=== PATIENT | female | born 1965 | race African-American/Black ===

== ENCOUNTER 2017-03-07 10:02 | Inpatient (IN) | payer OTHER ==
[2017-03-07 12:17] VITALS: BMI 36.7
--- NOTE | 2017-03-07 15:49 | HP ---
Admission [facility] Chief Complaint: REHAB TX FOR COCAINE AND ALCOHOL DEPENDENCE Allergies/Adverse Reactions: Allergies Allergy/AdvReac Type Severity Reaction Status Date / Time haloperidol [From Haldol] Allergy Severe Verified 03/07/17 14:39 haloperidol lactate Allergy Severe Verified 03/07/17 14:37 [From Haldol] Penicillins Allergy Intermediate Rash Verified 03/07/17 14:37 History of Present Illness: 51 Y/O AA/FEMALE WITH A HX OF COCAINE AND ALCOHOL DEPENDENCE SEEKING REHAB TX Exam Limitations: No Limitations - Ebola screening Have you traveled outside of the country in the last 21 days: No Have you had contact with anyone from an Ebola affected area: No Have you been sick,other than usual withdrawal symptoms: No Do you have a fever: No - Review of Systems Constitutional: No Symptoms Reported EENT: reports: Blurred Vision (READING GLASSES), Tearing, Nose Congestion ( ALLERGIES-TAKES CLARITIN), Dental Problems (MISSING TEETH) Respiratory: reports: No Symptoms reported Cardiac: reports: Lightheadedness GI: reports: Constipated, Other (BLOATING) : reports: No Symptoms Reported Musculoskeletal: reports: No Symptoms Reported Integumentary: reports: No Symptoms Reported (TAGS), Rash Neuro: reports: Unsteady Gait Endocrine: reports: No Symptoms Reported Hematology: reports: No Symptoms Reported Psychiatric: reports: Orientated x3 Other Systems: Reviewed and Negative Patient History - Patient Medical History Hx Anemia: No Hx Asthma: No Hx Chronic Obstructive Pulmonary Disease (COPD): No Hx Cardiac Disorders: No Hx Hypertension: No Hx Hypercholesterolemia: No HX Cerebrovascular Accident: No Hx Seizures: No Hx Diabetes: No Hx Gastrointestinal Disorders: No Hx Genitourinary Disorders: No Hx Sexually Transmitted Disorders: No Hx Renal Disease (ESRD): No Hx Thyroid Disease: No Hx Human Immunodeficiency Virus (HIV): Yes (SINCE 1998- ON ATRIPLA) Hx Hepatitis C: No Hx Depression: No Hx Suicide Attempt: No (DENIES) Hx Bipolar Disorder: No Hx Schizophrenia: No - Patient Surgical History Past Surgical History: No Hx Neurologic Surgery: No Hx Cataract Extraction: No Hx Cardiac Surgery: No Hx Lung Surgery: No Hx Breast Surgery: No Hx Breast Biopsy: No Hx Abdominal Surgery: No Hx Appendectomy: No Hx Cholecystectomy: No Hx Genitourinary Surgery: No Hx Section: No Hx Orthopedic Surgery: No Hx Hysterectomy: No Anesthesia Reaction: No - PPD History Previous Implant?: Yes (PPD + HX) Documented Results: Positive w/o proof Implanted On Prior [facility] Admission?: No Results: CXR TO BE DONE PPD to be Administered?: No - Reproductive History Patient is a Female of Child Bearing Age (11 -55 yrs old): Yes Last Menstrual Period: 02/17/17 Patient : No - Smoking Cessation Smoking history: Current every day smoker Have you smoked in the past 12 months: No Hx Chewing Tobacco Use: No Initiated information on smoking cessation: No - Substance & Tx. History Hx Alcohol Use: Yes (VODKA/MARGERITA) Hx Substance Use: Yes (COCAINE) Substance Use Type: Alcohol, Cocaine Hx Substance Use Treatment: Yes ([facility]) Family Disease History - Family Disease History Family History: Denies Admission Physical Exam [facility] - Vital Signs Vital Signs: Vital Signs - 24 hr 03/07/17 12:08 Temperature 97 F L Pulse Rate 86 Respiratory 20 Rate Blood Pressure 143/85 - Physical General Appearance: Yes: No Apparent Distress, Obese, Anxious HEENTM: Yes: EOMI, Normocephalic, MARLENE, Pharynx Normal Respiratory: Yes: Chest Non-Tender, Lungs Clear, Normal Breath Sounds, No Respiratory Distress Neck: Yes: Supple, Trachea in good position Breast: Yes: Breast Exam Deferred Cardiology: Yes: Regular Rhythm, Regular Rate, S1, S2 Abdominal: Yes: Normal Bowel Sounds, Non Tender, Soft Genitourinary: Yes: Other (N/C) Back: Yes: Within Normal Limits Musculoskeletal: Yes: full range of Motion, Gait Steady Extremities: Yes: Normal Range of Motion, Non-Tender Neurological: Yes: ammonia distiller II-XII NML intact, Fully Oriented, Alert Integumentary: Yes: Dry, Warm Lymphatic: Yes: Within Normal Limits - Diagnostic (1) Alcohol dependence with uncomplicated withdrawal Current Visit: Yes Status: Chronic (2) Cocaine dependence, uncomplicated Current Visit: Yes Status: Chronic (3) HIV (human immunodeficiency virus infection) Current Visit: Yes Status: Acute (4) Hx of allergic rhinitis Current Visit: Yes Status: Chronic Comment: ON CLARITIN Cleared for Admission [facility] - Detox or Rehab [facility] Level of Care: Medically Managed Claeared for Rehab Admission: Yes [facility] Breath Alcohol Content Breath Alcohol Content: 0 Urine Pregancy Test - Result Urine Test Results: Negative- NO Line Present Urine Drug Screen - Results Drug Screen Negative: No Urine Drug Screen Results: IAM-Cocaine
[2017-03-07] MEDS ORDERED: hydrOXYzine PAMOATE 25 MG CAPSULE (FP) PO PRN (16:03)
[2017-03-07] MEDS ORDERED: MENTHOL/PHENOL 1 EACH UD MM PRN (16:03)
[2017-03-07] MEDS ORDERED: IBUPROFEN 400 MG TABLET (FP) PO PRN (16:03)
[2017-03-07] MEDS ORDERED: LOPERAMIDE HCL 2 MG CAPSULE PO PRN (16:03)
[2017-03-07] MEDS ORDERED: MAGNESIUM HYDROX 2400MG/30ML ORAL SUSPENSION 30 ML CUP PO PRN (16:03)
[2017-03-07] MEDS ORDERED: diphenhydrAMINE HCL 50 MG CAPSULE PO PRN (16:03)
[2017-03-07] MEDS ORDERED: MAGNESIUM CITRATE 300 ML BOTTLE PO PRN (16:03)
[2017-03-07] MEDS ORDERED: P-EPHED 60MG/TRIPROLIDI 2.5MG TABLET PO PRN (16:03)
[2017-03-07] MEDS ORDERED: guaiFENesin/D-METHORPHAN HB 10 ML UNIT-DOSE CUPS PO PRN (16:03)
[2017-03-07] MEDS ORDERED: MAG HYDROX/AL HYDROX/SIMETH 30 ML UNIT-DOSE CUP PO PRN (16:03)
[2017-03-07] MEDS ORDERED: PATIENT'S OWN MEDICATION (NON-FORMULARY) (Efavirenz/Emtricitab/Tenofovir 1 TAB) PO SCH (16:15)
[2017-03-07] MEDS ORDERED: POLYETHYLENE GLYCOL 3350 255 GM BTL PO SCH (17:45)
[2017-03-07] MEDS ORDERED: EFAVIRENZ 600 MG TABLET PO ONE (17:45)
[2017-03-07] MEDS ORDERED: EMTRICITABINE 200MG/TENOFOVIR 300MG PO ONE (17:45)
[2017-03-07 19:00] LABS: URINE APPEARANCE CLEAR; URINE BILIRUBIN NEGATIVE (NEGATIVE); URINE BLOOD NEGATIVE (NEGATIVE); URINE COLOR YELLOW; URINE GLUCOSE (UA) NEGATIVE (NEGATIVE); URINE KETONE 1+ (NEGATIVE); URINE LEUK ESTERASE NEGATIVE (NEGATIVE); URINE NITRITE NEGATIVE (NEGATIVE); URINE PROTEIN NEGATIVE (NEGATIVE); URINE UROBILINOGEN NEGATIVE E.U./dl (0.2-1.0)
[2017-03-07] MEDS: BACITRACIN 0.9 GM PACKET TP SCH (21:28)
[2017-03-07] MEDS: THIAMINE HCL 100 MG TABLET (FP) PO SCH (21:28)
[2017-03-07] MEDS: PANTOPRAZOLE 40 MG TABLET (FP) PO SCH (21:30)
[2017-03-07] MEDS: LORATADINE 10 MG TABLET PO SCH (21:32)
[2017-03-08] MEDS ORDERED: PT OWN MED DRAWER 7, Y5N ONE ×2 (08:53→21:25)
[2017-03-08] MEDS ORDERED: EFAVIRENZ 600 MG TABLET PO SCH (10:00)
[2017-03-08] MEDS ORDERED: EMTRICITABINE 200MG/TENOFOVIR 300MG PO SCH (10:00)
[2017-03-08 10:04] LABS: MCH 28.7 pg (25.7-33.7); MCHC 34.3 g/dl (32.0-36.0); MEAN CELL VOLUME 83.8 fl (80-96); MEAN PLT VOLUME 9.4 fl (7.5-11.1); PLATELET COUNT 199 K/MM3 (134-434); RDW 14.8 % (11.6-15.6); WHITE BLOOD COUNT 7.5 K/mm3 (4.0-10.0)
[2017-03-08] MEDS: PANTOPRAZOLE 40 MG TABLET (FP) PO SCH (10:27)
[2017-03-08] MEDS: PRENATAL VITAMINS W/ FOLIC ACID TABLET (FP) PO SCH (10:27)
[2017-03-08] MEDS: LORATADINE 10 MG TABLET PO SCH (10:28)
[2017-03-08] MEDS: BACITRACIN 0.9 GM PACKET TP SCH ×2 (10:28→21:23)
[2017-03-08] MEDS: POLYETHYLENE GLYCOL 3350 119 GM BTL PO SCH (10:28)
[2017-03-08 10:53] LABS: ALBUMIN 3.7 g/dl (3.4-5.0); BILIRUBIN,TOTAL 0.3 mg/dL (0.2-1.0); CALCIUM 8.8 mg/dL (8.5-10.1); COCKROFT - GAULT 100.8355; TOT PROT 7.2 g/dl (6.4-8.2)
--- NOTE | 2017-03-08 11:57 | EKG ---
Test Reason : Blood Pressure : / mmHG Vent. Rate : 080 BPM Atrial Rate : 080 BPM P-R Int : 172 ms QRS Dur : 092 ms QT Int : 404 ms P-R-T Axes : 062 -12 039 degrees QTc Int : 465 ms NORMAL SINUS RHYTHM NORMAL ECG NO PREVIOUS ECGS AVAILABLE Confirmed by AYESHA WEAVER, RAJENDRA ([id number]) on 03/08/2017 11:57:08 AM Referred By: Confirmed By:RAJENDRA HODGE MD
[2017-03-08 12:03] LABS: SICKLE CELL SCREEN NEGATIVE (NEGATIVE)
[2017-03-08] MEDS: THIAMINE HCL 100 MG TABLET (FP) PO SCH (21:24)
[2017-03-08] MEDS: EFAVIRENZ 600 MG TABLET PO SCH (21:25)
[2017-03-08] MEDS: EMTRICITABINE 200MG/TENOFOVIR 300MG PO SCH (21:26)
[2017-03-09] MEDS ORDERED: PT OWN MED DRAWER 7, Y5N ONE (08:29)
--- NOTE | 2017-03-09 09:45 | HP ---
Psychiatrist Admission - Data Date of interview: 03/09/17 Admission source: [facility] Identifying data: this is the first admission to [address] [place] [address] for this 51 years old single mother of 23 yo son,resides with family,supported by [place]. Medical History: HIV + ,dx in 1998. Psychiatric History: denies Physical/Sexual Abuse/Trauma History: denies Vital Signs: Vital Signs - 24 hr 03/09/17 03/09/17 03/09/17 00:30 03:30 07:15 Temperature 98.4 F Pulse Rate 85 Respiratory 16 16 18 Rate Blood Pressure 138/88 Allergies/Adverse Reactions: Allergies Allergy/AdvReac Type Severity Reaction Status Date / Time haloperidol [From Haldol] Allergy Severe Verified 03/07/17 14:39 haloperidol lactate Allergy Severe Verified 03/07/17 14:37 [From Haldol] Penicillins Allergy Intermediate Rash Verified 03/07/17 14:37 Date of last physical exam: 03/07/17 Concur with the findings of this exam: Yes - Substance Abuse/Tx History Hx Alcohol Use: Yes (reports dinking since school age ) Hx Substance Use: Yes (cocaine since 18 years old) Substance Use Type: Alcohol, Cocaine Hx Substance Use Treatment: Yes (2 years of abstinence) - Admission Criteria Previous failed treatment: Yes Poor recovery environment: Yes Comorbidities: Yes Lacks judgement: Yes Mental Status Exam - Mental Status Exam Alert and Oriented to: Time, Place, Person Cognitive Function: Grossly Intact Patient Appearance: Well Groomed Mood: Euthymic Affect: Mood Congruent Patient Behavior: Cooperative Speech Pattern: Clear Voice Loudness: Normal Thought Process: Goal Oriented Thought Disorder: Not Present Hallucinations: Denies Suicidal Ideation: Denies Homicidal Ideation: Denies Insight/Judgement: Good Sleep: Fair Appetite: Good Muscle strength/Tone: Normal Gait/Station: Normal Psychiatric Findings - Problem List ([place] 1, 2,3) (1) HIV (human immunodeficiency virus infection) Current Visit: Yes Status: Chronic (2) Alcohol dependence with uncomplicated withdrawal Current Visit: Yes Status: Chronic (3) Cocaine dependence, uncomplicated Current Visit: Yes Status: Chronic (4) Hx of allergic rhinitis Current Visit: Yes Status: Chronic Comment: ON CLARITIN - Initial Treatment Plan Initial Treatment Plan: Will monitor progress.
[2017-03-09] MEDS: POLYETHYLENE GLYCOL 3350 119 GM BTL PO SCH (09:52)
[2017-03-09] MEDS: PRENATAL VITAMINS W/ FOLIC ACID TABLET (FP) PO SCH (09:53)
[2017-03-09] MEDS: PANTOPRAZOLE 40 MG TABLET (FP) PO SCH (09:53)
[2017-03-09] MEDS: LORATADINE 10 MG TABLET PO SCH (09:53)
[2017-03-09] MEDS: BACITRACIN 0.9 GM PACKET TP SCH ×2 (09:53→21:26)
[2017-03-09] MEDS: THIAMINE HCL 100 MG TABLET (FP) PO SCH (21:26)
[2017-03-09] MEDS: EFAVIRENZ 600 MG TABLET PO SCH (21:27)
[2017-03-09] MEDS: EMTRICITABINE 200MG/TENOFOVIR 300MG PO SCH (21:28)
[2017-03-10] MEDS: BACITRACIN 0.9 GM PACKET TP SCH ×2 (10:07→21:22)
[2017-03-10] MEDS: PRENATAL VITAMINS W/ FOLIC ACID TABLET (FP) PO SCH (10:07)
[2017-03-10] MEDS: LORATADINE 10 MG TABLET PO SCH (10:07)
[2017-03-10] MEDS: PANTOPRAZOLE 40 MG TABLET (FP) PO SCH (10:07)
[2017-03-10] MEDS: EMTRICITABINE 200MG/TENOFOVIR 300MG PO SCH (21:22)
[2017-03-10] MEDS: THIAMINE HCL 100 MG TABLET (FP) PO SCH (21:22)
[2017-03-10] MEDS: EFAVIRENZ 600 MG TABLET PO SCH (21:23)
[2017-03-11] MEDS: LORATADINE 10 MG TABLET PO SCH (10:07)
[2017-03-11] MEDS: BACITRACIN 0.9 GM PACKET TP SCH ×2 (10:07→21:36)
[2017-03-11] MEDS: PANTOPRAZOLE 40 MG TABLET (FP) PO SCH (10:08)
[2017-03-11] MEDS: PRENATAL VITAMINS W/ FOLIC ACID TABLET (FP) PO SCH (10:08)
[2017-03-11] MEDS ORDERED: PT OWN MED DRAWER 7, Y5N ONE ×2 (19:33→22:10)
[2017-03-11] MEDS: THIAMINE HCL 100 MG TABLET (FP) PO SCH (21:36)
[2017-03-11] MEDS: EFAVIRENZ 600 MG TABLET PO SCH (21:36)
[2017-03-11] MEDS: EMTRICITABINE 200MG/TENOFOVIR 300MG PO SCH (21:58)
[2017-03-12] MEDS: PRENATAL VITAMINS W/ FOLIC ACID TABLET (FP) PO SCH (10:21)
[2017-03-12] MEDS: PANTOPRAZOLE 40 MG TABLET (FP) PO SCH (10:21)
[2017-03-12] MEDS: LORATADINE 10 MG TABLET PO SCH (10:21)
[2017-03-12] MEDS: BACITRACIN 0.9 GM PACKET TP SCH ×2 (10:21→21:29)
[2017-03-12] MEDS: THIAMINE HCL 100 MG TABLET (FP) PO SCH (21:28)
[2017-03-12] MEDS: EFAVIRENZ 600 MG TABLET PO SCH (21:29)
[2017-03-12] MEDS: EMTRICITABINE 200MG/TENOFOVIR 300MG PO SCH (21:30)
[2017-03-13] MEDS: BACITRACIN 0.9 GM PACKET TP SCH ×2 (10:02→21:25)
[2017-03-13] MEDS: PANTOPRAZOLE 40 MG TABLET (FP) PO SCH (10:02)
[2017-03-13] MEDS: PRENATAL VITAMINS W/ FOLIC ACID TABLET (FP) PO SCH (10:02)
[2017-03-13] MEDS: LORATADINE 10 MG TABLET PO SCH (10:02)
[2017-03-13] MEDS: THIAMINE HCL 100 MG TABLET (FP) PO SCH (21:25)
[2017-03-13] MEDS: EFAVIRENZ 600 MG TABLET PO SCH (21:25)
[2017-03-13] MEDS: EMTRICITABINE 200MG/TENOFOVIR 300MG PO SCH (21:25)
[2017-03-14] MEDS: PRENATAL VITAMINS W/ FOLIC ACID TABLET (FP) PO SCH (10:33)
[2017-03-14] MEDS: PANTOPRAZOLE 40 MG TABLET (FP) PO SCH (10:33)
[2017-03-14] MEDS: BACITRACIN 0.9 GM PACKET TP SCH ×2 (10:33→21:32)
[2017-03-14] MEDS: LORATADINE 10 MG TABLET PO SCH (10:33)
[2017-03-14] MEDS ORDERED: PT OWN MED DRAWER 7, Y5N ONE (16:29)
[2017-03-14] MEDS: THIAMINE HCL 100 MG TABLET (FP) PO SCH (21:31)
[2017-03-14] MEDS: EFAVIRENZ 600 MG TABLET PO SCH (21:32)
[2017-03-14] MEDS: EMTRICITABINE 200MG/TENOFOVIR 300MG PO SCH (21:32)
[2017-03-15] MEDS: LORATADINE 10 MG TABLET PO SCH (10:35)
[2017-03-15] MEDS: PRENATAL VITAMINS W/ FOLIC ACID TABLET (FP) PO SCH (10:35)
[2017-03-15] MEDS: BACITRACIN 0.9 GM PACKET TP SCH ×2 (10:35→21:48)
[2017-03-15] MEDS: PANTOPRAZOLE 40 MG TABLET (FP) PO SCH (10:35)
[2017-03-15] MEDS ORDERED: PT OWN MED DRAWER 7, Y5N ONE (21:00)
[2017-03-15] MEDS: EMTRICITABINE 200MG/TENOFOVIR 300MG PO SCH (21:47)
[2017-03-15] MEDS: EFAVIRENZ 600 MG TABLET PO SCH (21:47)
[2017-03-15] MEDS: THIAMINE HCL 100 MG TABLET (FP) PO SCH (21:48)
[2017-03-16] MEDS: BACITRACIN 0.9 GM PACKET TP SCH ×2 (10:26→21:37)
[2017-03-16] MEDS: PANTOPRAZOLE 40 MG TABLET (FP) PO SCH (10:26)
[2017-03-16] MEDS: PRENATAL VITAMINS W/ FOLIC ACID TABLET (FP) PO SCH (10:26)
[2017-03-16] MEDS: LORATADINE 10 MG TABLET PO SCH (10:26)
[2017-03-16] MEDS ORDERED: PT OWN MED DRAWER 7, Y5N ONE (21:36)
[2017-03-16] MEDS: THIAMINE HCL 100 MG TABLET (FP) PO SCH (21:36)
[2017-03-16] MEDS: EFAVIRENZ 600 MG TABLET PO SCH (21:36)
[2017-03-16] MEDS: EMTRICITABINE 200MG/TENOFOVIR 300MG PO SCH (21:36)
[2017-03-17] MEDS: PRENATAL VITAMINS W/ FOLIC ACID TABLET (FP) PO SCH (10:19)
[2017-03-17] MEDS: LORATADINE 10 MG TABLET PO SCH (10:19)
[2017-03-17] MEDS: BACITRACIN 0.9 GM PACKET TP SCH ×2 (10:19→21:29)
[2017-03-17] MEDS: PANTOPRAZOLE 40 MG TABLET (FP) PO SCH (10:19)
[2017-03-17] MEDS: EFAVIRENZ 600 MG TABLET PO SCH (21:28)
[2017-03-17] MEDS: THIAMINE HCL 100 MG TABLET (FP) PO SCH (21:28)
[2017-03-17] MEDS: EMTRICITABINE 200MG/TENOFOVIR 300MG PO SCH (21:29)
[2017-03-18] MEDS: BACITRACIN 0.9 GM PACKET TP SCH ×2 (10:28→21:33)
[2017-03-18] MEDS: PANTOPRAZOLE 40 MG TABLET (FP) PO SCH (10:29)
[2017-03-18] MEDS: PRENATAL VITAMINS W/ FOLIC ACID TABLET (FP) PO SCH (10:29)
[2017-03-18] MEDS: LORATADINE 10 MG TABLET PO SCH (10:29)
[2017-03-18] MEDS: THIAMINE HCL 100 MG TABLET (FP) PO SCH (21:33)
[2017-03-18] MEDS: EMTRICITABINE 200MG/TENOFOVIR 300MG PO SCH (21:35)
[2017-03-18] MEDS: EFAVIRENZ 600 MG TABLET PO SCH (21:36)
[2017-03-18] MEDS ORDERED: PT OWN MED DRAWER 7, Y5N ONE (21:36)
[2017-03-19] MEDS: BACITRACIN 0.9 GM PACKET TP SCH ×2 (09:46→21:16)
[2017-03-19] MEDS: PANTOPRAZOLE 40 MG TABLET (FP) PO SCH (09:46)
[2017-03-19] MEDS: PRENATAL VITAMINS W/ FOLIC ACID TABLET (FP) PO SCH (09:46)
[2017-03-19] MEDS: LORATADINE 10 MG TABLET PO SCH (09:46)
[2017-03-19] MEDS: ACETAMINOPHEN 325 MG TABLET (FP) PO PRN (16:28)
[2017-03-19] MEDS: EFAVIRENZ 600 MG TABLET PO SCH (21:16)
[2017-03-19] MEDS: THIAMINE HCL 100 MG TABLET (FP) PO SCH (21:16)
[2017-03-19] MEDS: EMTRICITABINE 200MG/TENOFOVIR 300MG PO SCH (21:17)
[2017-03-20] MEDS: ACETAMINOPHEN 325 MG TABLET (FP) PO PRN (08:28)
[2017-03-20] MEDS: BACITRACIN 0.9 GM PACKET TP SCH ×2 (09:53→21:25)
[2017-03-20] MEDS: LORATADINE 10 MG TABLET PO SCH (09:53)
[2017-03-20] MEDS: PANTOPRAZOLE 40 MG TABLET (FP) PO SCH (09:53)
[2017-03-20] MEDS: PRENATAL VITAMINS W/ FOLIC ACID TABLET (FP) PO SCH (09:53)
[2017-03-20] MEDS ORDERED: PT OWN MED DRAWER 7, Y5N ONE (20:45)
[2017-03-20] MEDS: THIAMINE HCL 100 MG TABLET (FP) PO SCH (21:25)
[2017-03-20] MEDS: EFAVIRENZ 600 MG TABLET PO SCH (21:26)
[2017-03-20] MEDS: EMTRICITABINE 200MG/TENOFOVIR 300MG PO SCH (21:26)
[2017-03-21 06:50] VITALS: BP 150/92; PULSE 88; TEMP 97.4
--- NOTE | 2017-03-21 09:30 | PN ---
Psychiatric Progress Note Vital Signs: Vital Signs Period Temp Pulse Resp BP Sys/Quintanilla Pulse Ox Last 24 Hr 97.4 F 88 18-18 150/92 Date of Session: 03/21/17 Chief Complaint:: Discharge visit HPI: Patient addressed Alcohol and Cocaine dependence . ROS: Significant for HIV+,Allergic rhinitis. Current Medications: Active Medications Generic Name Dose Route Start Last Admin Trade Name Freq PRN Reason Stop Dose Admin Acetaminophen 650 mg 03/07/17 16:03 03/20/17 08:28 Tylenol - PO 650 mg Q4H PRN Administration PAIN Al Hydroxide/Mg Hydroxide 30 ml 03/07/17 16:03 Mylanta Oral Suspension - PO Q6H PRN DYSPEPSIA Bacitracin 0.9 gm 03/07/17 22:00 03/20/17 21:25 Bacitracin - TP 0.9 gm BID BERNARDINO Administration Diphenhydramine HCl 50 mg 03/07/17 16:03 Benadryl - PO HSMR1 PRN INSOMNIA Efavirenz 600 mg 03/08/17 22:00 03/20/17 21:26 Sustiva - PO 600 mg HS BERNARDINO Administration Emtricitabine/Tenofovir 1 tab 03/08/17 22:00 03/20/17 21:26 Truvada PO 1 tab HS BERNARDINO Administration Eucalyptus/Menthol/Phenol/Sorbitol 1 each 03/07/17 16:03 Cepastat Lozenge - MM Q4H PRN SORE THROAT Guaifenesin 10 ml 03/07/17 16:03 Robitussin Dm - PO Q6H PRN COUGH Hydroxyzine Pamoate 25 mg 03/07/17 16:03 Vistaril - PO Q4H PRN AGITATION Ibuprofen 400 mg 03/07/17 16:03 Motrin - PO Q6H PRN SEVERE PAIN Loperamide HCl 4 mg 03/07/17 16:03 Imodium - PO Q6H PRN DIARRHEA Loratadine 10 mg 03/07/17 17:30 03/20/17 09:53 Claritin - PO 10 mg DAILY BERNARDINO Administration Magnesium Citrate 300 ml 03/07/17 16:03 Citroma - PO Q48H PRN CONSTIPATION Magnesium Hydroxide 30 ml 03/07/17 16:03 03/08/17 18:54 Milk Of Magnesia - PO 30 ml DAILY PRN Administration CONSTIPATION Pantoprazole Sodium 40 mg 03/07/17 17:30 03/20/17 09:53 Protonix - PO 40 mg DAILY BERNARDINO Administration Multivit/Folic Acid/Iron 1 tab 03/08/17 10:00 03/20/17 09:53 Vitamins ([facility]) - PO 1 tab DAILY BERNARDINO Administration Pseudoephedrine/Triprolidine 1 combo 03/07/17 16:03 Actifed - PO TID PRN NASAL CONGESTION Thiamine HCl 100 mg 03/07/17 22:00 03/20/17 21:25 Vitamin B1 - PO 100 mg HS BERNARDINO Administration Current Side Effect: No Lab tests ordered: No Lab tests reviewed: Yes Provider note:: Patient completed this program today.She has met her treatment plan and will continue to address her issues on outpatient basis.Patient identifies behaviors which contribute to relapse and skills,support she can utilize to maintai recovery.Supportive therapy provided.Patient appears stable for discharge today. Total face to face time:: 30 Mental Status Exam - Mental Status Exam Alert and Oriented to: Time, Place, Person Cognitive Function: Grossly Intact Patient Appearance: Well Groomed Mood: Euthymic Affect: Mood Congruent Patient Behavior: Cooperative Speech Pattern: Clear Voice Loudness: Normal Thought Process: Goal Oriented Thought Disorder: Not Present Hallucinations: Denies Suicidal Ideation: Denies Homicidal Ideation: Denies Insight/Judgement: Fair Sleep: Fair Appetite: Fair Muscle strength/Tone: Normal Gait/Station: Normal Psychiatric Treatment Plan - Problem List (4) Hx of allergic rhinitis Comment: ON HELIO
== END 2017-03-21 09:20 | disposition home or self-care (01) | DRG 772 ==
LOC: YASAS 10:02 → Y3E 15:12
PROVIDERS: ADMIT Psychiatry & Neurology Psychiatry; ATTEND Psychiatry & Neurology Psychiatry
PROC: HZ42ZZZ Group Counseling for Substance Abuse Treatment, Cognitive-Behavioral (ICD-10-PCS; principal; 2017-03-07)
DX: F10.20 Alcohol dependence, uncomplicated (principal); F14.20 Cocaine dependence, uncomplicated; Z21 Asymptomatic human immunodeficiency virus [HIV] infection status; J30.9 Allergic rhinitis, unspecified; Z88.0 Allergy status to penicillin; Z88.8 Allergy status to other drugs, medicaments and biological substances; E66.9 Obesity, unspecified; Z68.36 Body mass index [BMI] 36.0-36.9, adult
CPT/HCPCS: 36415; 71020-TC; 80053; 81003; 85027; 85660; 86593; 93005; 93010